=== PATIENT | female | born 1970 | race Caucasian/White ===

== ENCOUNTER 2021-02-19 12:31 | Emergency (ER) | payer OTHER ==
[~2021-02-19 12:31] MED LIST: ATARAX25 MG PO; PEPCID AC20 MG PO; PREDNISONE 20MG20 MG PO
[2021-02-19 13:41] LABS: INFLUENZA A NAA NEGATIVE (NEGATIVE)
[2021-02-19 13:49] LABS: CORONAVIRUS 2019 SARS-COV-2 POSITIVE (NEGATIVE)
[2021-02-19 13:49] LABS: BASOPHIL 0.8 % (0-2); EOSINOPHIL 1.9 % (0-5); HCT 40.2 % (37.0-47.0); HGB 13.5 g/dl (12.5-16.0); LYMPHOCYTE 49.7 % (15-48); MCH 32.1 pg (25.0-31.0); MCHC 33.6 g/dL (32.0-36.0); MCV 95.5 fL (78.0-100.0); MPV 11.3 fL (6.0-9.5); NEUTROPHIL 34.6 % (41-80); NRBC 0; PLT 246 K/uL (150-400); RBC 4.21 M/uL (4.20-5.40); RDW 12.4 % (11.5-14.0); WBC 3.8 K/uL (4.0-10.5)
[2021-02-19 14:15] LABS: BUN/CREAT RATIO (CALC) 19.7 RATIO; CREATININE 0.66 mg/dL (0.51-0.95)
[2021-02-19 15:02] LABS: BILIRUBIN NEGATIVE (NEGATIVE); BLOOD NEGATIVE Ery/uL (NEGATIVE); CLARITY CLEAR (CLEAR); COLOR YELLOW (YELLOW); GLUCOSE (U) NORMAL (NORMAL); LEUKOCYTES NEGATIVE Leu/uL (NEGATIVE); NITRITE NEGATIVE (NEGATIVE); PROTEIN NEGATIVE (NEGATIVE); SPECIFIC GRAVITY >=1.030 (1.001-1.030); UROBILINOGEN 0.2 mg/dL (0.2-1.0); pH 5.5 (5.0-9.0)
== END 2021-02-19 17:04 | disposition home or self-care (01) ==
LOC: FER 12:31
PROVIDERS: Emergency Medicine; Nurse Practitioner Family
DX: U07.1 COVID-19 (principal); I10 Essential (primary) hypertension; E11.9 Type 2 diabetes mellitus without complications; Z23 Encounter for immunization
CPT/HCPCS: 36415; 71045; 80048; 81003; 85025; J7030; M0243; Q0244; U0002

== ENCOUNTER 2021-06-23 20:12 | Emergency (ER) | payer OTHER ==
[2021-06-23 21:31] LABS: BASOPHIL 0.7 % (0-2); EOSINOPHIL 4.2 % (0-5); HCT 41.6 % (37.0-47.0); HGB 14.1 g/dl (12.5-16.0); LYMPHOCYTE 28.2 % (15-48); MCH 32.6 pg (25.0-31.0); MCHC 33.9 g/dL (32.0-36.0); MCV 96.3 fL (78.0-100.0); MONOCYTE 7.2 % (0-12); MPV 10.6 fL (6.0-9.5); NEUTROPHIL 59.3 % (41-80); NRBC 0; PLT 371 K/uL (150-400); RBC 4.32 M/uL (4.20-5.40); RDW 12.2 % (11.5-14.0); WBC 13.4 K/uL (4.0-10.5)
[2021-06-23 21:46] LABS: ALBUMIN 3.9 g/dL (3.4-5.0); BILIRUBIN - TOTAL 0.2 mg/dL (0.2-1.0); BUN/CREAT RATIO (CALC) 22.2 RATIO; CREATININE 0.81 mg/dL (0.51-0.95); GLOBULIN (CALCULATION) 3.2 g/dL; POTASSIUM 3.9 mmol/L (3.5-5.1); TOTAL PROTEIN 7.1 g/dL (6.4-8.2)
[2021-06-23 22:21] LABS: CORONAVIRUS 2019 SARS-COV-2 NEGATIVE (NEGATIVE); INFLUENZA A NAA NEGATIVE (NEGATIVE)
[2021-06-23] MEDS ORDERED: VENTOLIN HFA18 GM INH (23:17)
[2021-06-23] MEDS ORDERED: AMOX TR-K CLV1 EAC4 PO (23:17)
== END 2021-06-24 00:04 | disposition home or self-care (01) ==
LOC: FER 20:12
PROVIDERS: Emergency Medicine
DX: J18.9 Pneumonia, unspecified organism (principal); I10 Essential (primary) hypertension; F17.200 Nicotine dependence, unspecified, uncomplicated; Z79.899 Other long term (current) drug therapy; Z20.822 Contact with and (suspected) exposure to COVID-19
CPT/HCPCS: 36415; 71045; 80053; 84484; 85025; 93005; 94640; 94664; J2930; U0002